=== PATIENT | male | born 1940 | race Caucasian/White ===

== ENCOUNTER → 2018-09-26 | Outpatient (CLI) | payer MEDICARE, MEDICAID ==
--- NOTE | 2018-09-26 11:11 | REP ---
KUB, ONE VIEW: HISTORY: Left upper quadrant pain. A small amount of air is present in small and large intestine. There are no air fluid levels or dilated loops of intestine. There is pneumoperitoneum. IMPRESSION: Nonspecific bowel gas pattern. Unreviewed
[2018-09-26 13:41] LABS: BASO # 0.1 10^3/uL (0.0-0.2); BASO % 0.8 % (0.0-1.0); EOS # 0.2 10^3/uL (0.0-0.50); EOS % 2.7 % (0.0-3.0); HEMATOCRIT 42.7 % (42.0-52.0); HEMOGLOBIN 14.4 g/dl (13.5-17.5); LYMPH # 2.4 10^3/uL (1.5-4.5); LYMPH % 26.6 % (24.0-44.0); MEAN CORPUSCULAR HEMOGLOBIN 30.4 pg (27.0-33.0); MEAN CORPUSCULAR HGB CONC 33.7 g/dl (32.0-36.5); MEAN CORPUSCULAR VOLUME 90.1 fl (80.0-96.0); MONO # 0.9 10^3/uL (0.0-0.8); MONO % 10.2 % (0.0-5.0); NEUTROPHILS # 5.2 10^3/uL (1.8-7.7); NEUTROPHILS % 59.1 % (36.0-66.0); PLATELET COUNT, AUTOMATED 332 10^3/uL (150-450); RED BLOOD COUNT 4.74 10^6/uL (4.30-6.10); WHITE BLOOD COUNT 8.8 10^3/uL (4.0-10.0)
[2018-09-26 14:10] LABS: ALBUMIN 3.7 GM/DL (3.2-5.2); ALT/SGPT 22 U/L (12-78); AMYLASE 58 U/L (25-115); BILIRUBIN,TOTAL 0.3 MG/DL (0.2-1.0); BLOOD UREA NITROGEN 17 MG/DL (7-18); CALCIUM LEVEL 8.7 MG/DL (8.8-10.2); CARBON DIOXIDE LEVEL 27 MEQ/L (21-32); CHLORIDE LEVEL 104 MEQ/L (98-107); GLOMERULAR FILTRATION RATE > 60.0 (>42); GLUCOSE, FASTING 78 MG/DL (70-100); LIPASE 125 U/L (73-393); POTASSIUM SERUM 4.5 MEQ/L (3.5-5.1); SODIUM LEVEL 139 MEQ/L (136-145); TOTAL PROTEIN 7.4 GM/DL (6.4-8.2)
[2018-09-26 15:42] LABS: PLATELET ESTIMATE NORMAL (NORMAL)
== END ==
LOC: M WUC 10:19
PROVIDERS: ATTEND Physician Assistant
DX: R10.12 Left upper quadrant pain (principal); Z79.899 Other long term (current) drug therapy

== ENCOUNTER → 2020-03-08 | Outpatient (CLI) | payer MEDICARE, MEDICAID ==
--- NOTE | 2020-03-08 10:23 | REP ---
Clinical: Pain. Technique: AP, lateral, bilateral oblique views of the left ankle. Findings: Generalized soft tissue swelling is appreciated along with chronic vascular calcifications consistent with peripheral vascular disease. Osseous structures demonstrate age-related changes. No acute fracture or dislocation. Ankle mortise appears intact. Impression: Soft-tissue swelling. Chronic changes. No acute fracture. Electronically Signed by Abrahan Park MD 03/08/2020 10:14 A
--- NOTE | 2020-03-08 10:24 | REP ---
Clinical: Pain. Technique: AP, lateral, bilateral oblique views of the left foot. Findings: Generalized age-related degenerative changes and evidence for peripheral vascular disease noted. Soft tissue swelling suggested. No acute fracture dislocation. No subcutaneous emphysema or foreign body. Impression: Soft-tissue swelling along with age-related degenerative changes and peripheral vascular disease. Electronically Signed by Abrahan Park MD 03/08/2020 10:15 A
[2020-03-08 12:39] LABS: BASO # 0.1 10^3/uL (0.0-0.2); BASO % 0.9 % (0.0-1.0); EOS # 0.3 10^3/uL (0.0-0.5); EOS % 2.9 % (0.0-3.0); HEMATOCRIT 42.7 % (42.0-52.0); HEMOGLOBIN 13.9 g/dl (13.5-17.5); LYMPH # 2.4 10^3/uL (1.5-5.0); LYMPH % 26.7 % (24.0-44.0); MEAN CORPUSCULAR HEMOGLOBIN 30.3 pg (27.0-33.0); MEAN CORPUSCULAR HGB CONC 32.6 g/dl (32.0-36.5); MEAN CORPUSCULAR VOLUME 93.2 fl (80.0-96.0); MONO # 1.2 10^3/uL (0.0-0.8); MONO % 13.2 % (0.0-5.0); NEUTROPHILS % 55.9 % (36.0-66.0); PLATELET COUNT, AUTOMATED 376 10^3/uL (150-450); RED BLOOD COUNT 4.58 10^6/uL (4.30-6.10)
[2020-03-08 13:33] LABS: ERYTHROCYTE SEDIMENTATION RATE 48 mm/hr (0-20)
== END ==
LOC: M WUC 09:56
PROVIDERS: ATTEND Physician Assistant
DX: M25.572 Pain in left ankle and joints of left foot (principal); M79.89 Other specified soft tissue disorders; M19.072 Primary osteoarthritis, left ankle and foot

== ENCOUNTER → 2020-03-14 | Outpatient (REF) | payer MEDICARE, MEDICAID ==
[2020-03-16 15:22] LABS: Lyme Disease IgG/IgM Antibodie <0.91 ISR (0.00-0.90); Lyme Disease IgM Ab Quantitati <0.80 index (0.00-0.79)
== END ==
LOC: M LABDRWAD 16:42
PROVIDERS: ATTEND Physician Assistant
DX: M25.572 Pain in left ankle and joints of left foot (principal); M25.571 Pain in right ankle and joints of right foot

== ENCOUNTER → 2020-06-30 | Outpatient (REF) | payer MEDICARE, MEDICAID | LOC: M LAB REF 16:20 | PROVIDERS: ATTEND Physician Assistant Medical | DX: M25.571 Pain in right ankle and joints of right foot (principal) ==

== ENCOUNTER → 2020-11-30 | Outpatient (REF) | payer MEDICARE, MEDICAID ==
[2020-11-30 12:45] LABS: BACTERIA, URINE AUTO NEGATIVE (NEGATIVE); MUCUS, URINE SMALL (NEGATIVE); RBC, URINE AUTO 1 /HPF (0-3); SQUAMOUS EPITHELIAL CELL UR AU 0 /HPF (0-6); WBC, URINE AUTO 0 /HPF (0-3)
[2020-11-30 12:51] LABS: BASO # 0.1 10^3/uL (0.0-0.2); BASO % 0.9 % (0.0-1.0); EOS # 0.2 10^3/uL (0.0-0.5); EOS % 1.9 % (0.0-3.0); HEMOGLOBIN 14.7 g/dl (13.5-17.5); LYMPH % 22.2 % (24.0-44.0); MEAN CORPUSCULAR HEMOGLOBIN 29.9 pg (27.0-33.0); MEAN CORPUSCULAR HGB CONC 32.7 g/dl (32.0-36.5); MEAN CORPUSCULAR VOLUME 91.5 fl (80.0-96.0); MONO % 10.9 % (2.0-8.0); NEUTROPHILS # 5.6 10^3/uL (1.5-8.5); NEUTROPHILS % 63.8 % (36.0-66.0); PLATELET COUNT, AUTOMATED 383 10^3/uL (150-450); RED BLOOD COUNT 4.92 10^6/uL (4.30-6.10); WHITE BLOOD COUNT 8.8 10^3/uL (4.0-10.0)
[2020-11-30 13:23] LABS: ERYTHROCYTE SEDIMENTATION RATE 42 mm/hr (0-20)
[2020-11-30 13:24] LABS: ALT/SGPT 18 U/L (12-78); AMYLASE 51 U/L (25-115); BILIRUBIN,TOTAL 0.3 MG/DL (0.2-1.0); BLOOD UREA NITROGEN 16 MG/DL (7-18); C REACTIVE PROTEIN QUANTITATIV 2.14 MG/DL (0.00-0.30); CALCIUM LEVEL 9.2 MG/DL (8.8-10.2); CARBON DIOXIDE LEVEL 30 MEQ/L (21-32); CHLORIDE LEVEL 104 MEQ/L (98-107); FREE T4 1.03 NG/DL (0.76-1.46); GLOMERULAR FILTRATION RATE > 60.0 (>42); GLUCOSE, FASTING 94 MG/DL (70-100); LIPASE 119 U/L (73-393); POTASSIUM SERUM 4.8 MEQ/L (3.5-5.1); SODIUM LEVEL 138 MEQ/L (136-145); TOTAL PROTEIN 8.1 GM/DL (6.4-8.2)
[2020-12-01 14:09] LABS: ANTINUCLEAR ANTIBODIES DIRECT Negative (Negative); Lyme Disease IgG/IgM Antibodie <0.91 ISR (0.00-0.90); Lyme Disease IgM Ab Quantitati <0.80 index (0.00-0.79)
== END ==
LOC: M LABDRWAD 12:27
PROVIDERS: ATTEND Nurse Practitioner Family
DX: R10.84 Generalized abdominal pain (principal); M25.50 Pain in unspecified joint; E07.9 Disorder of thyroid, unspecified

== ENCOUNTER 2021-02-10 11:13 | Emergency (ER) | payer MEDICARE, MEDICAID ==
[~2021-02-10] VITALS: Ht 154.9 cm; Wt 79.7 kg
--- NOTE | 2021-02-10 12:07 | REP ---
INDICATION: pain after a fall COMPARISON: None. TECHNIQUE: Three views right shoulder. FINDINGS: There is no evidence of acute fracture, dislocation, or intrinsic bone disease.Moderate narrowing and hypertrophic changes at the acromioclavicular joint. IMPRESSION: No fracture or dislocation. <Electronically signed by Denis Petit > 02/10/21 [id number]
[2021-02-10] MEDS ORDERED: ACETAMINOPHEN 325 MG TAB PO ONE (12:55)
--- NOTE | 2021-02-10 13:10 | REP ---
INDICATION: injury/swelling COMPARISON: 11/04/2019. TECHNIQUE: Four views right wrist. FINDINGS: There is no evidence of acute fracture, dislocation, or intrinsic bone disease.There is mild joint space narrowing of the radiocarpal joint and joint between trapezium and base of 1st metacarpal. There is scattered vascular calcifications in the soft tissues. IMPRESSION: No fracture or dislocation. <Electronically signed by Denis Petit > 02/10/21 [id number]
[2021-02-10] MEDS ORDERED: LIDO5DIS41 TOP (14:13)
[2021-02-10 14:37] VITALS: BP 149/76
== END 2021-02-10 14:37 | disposition home or self-care (01) ==
LOC: M ED 11:13
DX: S63.90XA Sprain of unspecified part of unspecified wrist and hand, initial encounter (principal); M25.511 Pain in right shoulder; Y92.9 Unspecified place or not applicable; Y93.89 Activity, other specified; Y99.9 Unspecified external cause status

== ENCOUNTER → 2021-02-19 | Outpatient (CLI) | payer MEDICARE, MEDICAID ==
[~2021-02-19] MED LIST: LIDO5DIS41 TOP
--- NOTE | 2021-02-19 10:35 | REP ---
INDICATION: UNDIFFERENTIATED INFLAMMATORY ARTHRITIS/LABS 1ST. COMPARISON: Comparison is made with right wrist radiographs from February 10, 2021 and November 04, 2019.. TECHNIQUE: Eight views. Four of each hand. FINDINGS: Four views of each hand demonstrate diffuse osteopenia. Vascular calcifications noted in the distal radial and distal ulnar arteries extending to the level of the wrist bilaterally. Joint spaces are preserved. No acute erosive changes are seen. There are minimal osteoarthritic spurs formed at the DIP joints of the left index, long, ring and small fingers and the IP joint of the left thumb. On the right there is mild osteoarthritic change with spurring at the index finger DIP and PIP and at the long finger PIP and DIP. There is mild spurring at the ring and small finger DIP joints as well on the right. Minimal spurring is seen at the IP joint of the thumb on the right. No bony destructive lesion is seen.. 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 Diffuse osteopenia and vascular calcification. No bony erosive changes seen.. <Electronically signed by Danyel Hu > 02/19/21 [id number]
[2021-02-19 10:40] LABS: BASO # 0.1 10^3/uL (0.0-0.2); BASO % 0.9 % (0.0-1.0); EOS # 0.2 10^3/uL (0.0-0.5); EOS % 2.4 % (0.0-3.0); HEMATOCRIT 43.2 % (42.0-52.0); HEMOGLOBIN 13.9 g/dl (13.5-17.5); LYMPH # 1.8 10^3/uL (1.5-5.0); LYMPH % 20.5 % (24.0-44.0); MEAN CORPUSCULAR HEMOGLOBIN 29.4 pg (27.0-33.0); MEAN CORPUSCULAR HGB CONC 32.2 g/dl (32.0-36.5); MEAN CORPUSCULAR VOLUME 91.5 fl (80.0-96.0); MONO # 0.8 10^3/uL (0.0-0.8); MONO % 9.2 % (2.0-8.0); NEUTROPHILS # 5.8 10^3/uL (1.5-8.5); NEUTROPHILS % 66.8 % (36.0-66.0); PLATELET COUNT, AUTOMATED 315 10^3/uL (150-450); RED BLOOD COUNT 4.72 10^6/uL (4.30-6.10); WHITE BLOOD COUNT 8.6 10^3/uL (4.0-10.0)
[2021-02-19 10:45] LABS: APPEARANCE, URINE CLEAR (CLEAR); BACTERIA, URINE AUTO NEGATIVE (NEGATIVE); BILIRUBIN, URINE AUTO NEGATIVE (NEGATIVE); BLOOD, URINE BLOOD 1+ (NEGATIVE); COLOR, URINE STRAW (YELLOW); GLUCOSE, URINE (UA) AUTO NEGATIVE (NEGATIVE); KETONE, URINE AUTO NEGATIVE (NEGATIVE); LEUKOCYTE ESTERASE, URINE AUTO NEGATIVE (NEGATIVE); MUCUS, URINE SMALL (NEGATIVE); NITRITE, URINE AUTO NEGATIVE (NEGATIVE); PROTEIN, URINE AUTO NEGATIVE (NEGATIVE); RBC, URINE AUTO 1 /HPF (0-3); SQUAMOUS EPITHELIAL CELL UR AU 0 /HPF (0-6); UROBILINOGEN, URINE AUTO 0.2 mg/dL (0.0-2.0); WBC, URINE AUTO 0 /HPF (0-3)
[2021-02-19 11:04] LABS: ALT/SGPT 19 U/L (12-78); BILIRUBIN,DIRECT < 0.1 MG/DL (0.0-0.2); BILIRUBIN,TOTAL 0.4 MG/DL (0.2-1.0); BLOOD UREA NITROGEN 16 MG/DL (7-18); C REACTIVE PROTEIN QUANTITATIV 2.43 MG/DL (0.00-0.30); CALCIUM LEVEL 9.2 MG/DL (8.8-10.2); CARBON DIOXIDE LEVEL 28 MEQ/L (21-32); CHLORIDE LEVEL 104 MEQ/L (98-107); COMPLEMENT C3 126 MG/DL (90-180); COMPLEMENT C4 37 MG/DL (10-40); CPK CREATINE PHOSPHOKINASE 91 U/L (39-308); CREATININE FOR GFR 0.67 MG/DL (0.70-1.30); GLOMERULAR FILTRATION RATE > 60.0 (>35); GLUCOSE, FASTING 82 MG/DL (70-100); IRON (FE) 61 UG/DL (65-175); MAGNESIUM LEVEL 2.2 MG/DL (1.8-2.4); PHOSPHORUS LEVEL 3.2 MG/DL (2.5-4.9); POTASSIUM SERUM 4.7 MEQ/L (3.5-5.1); RHEUMATOID FACTOR QUANT < 10.0 IU/ML (<15.0); SODIUM LEVEL 139 MEQ/L (136-145); TOTAL PROTEIN 8.1 GM/DL (6.4-8.2)
--- NOTE | 2021-02-19 11:13 | REP ---
INDICATION: OTH SPECIFIC JOINT DERANGEMENTS OF RIGHT SHOULDER, NEC. COMPARISON: Comparison radiographs of the right shoulder from February 10, 2021.. TECHNIQUE: Axial, oblique coronal, and oblique sagittal imaging planes utilized. T1 and T2 weighted scans are obtained in the usual fashion with without fat saturation. FINDINGS: There is some osteoarthritic hypertrophy, marrow edema, and joint fluid at the acromioclavicular joint. There is also a moderate glenohumeral joint effusion. There is a complete retracted tear of the supraspinatus tendon with obliteration of the subacromial space and associated mild superior subluxation of the humeral head relative to the glenoid. Cortical and medullary bone signal intensity are normal in the glenoid and humeral head. The biceps, infraspinatus, and subscapularis tendons appear to be intact. No anterior or posterior labral cartilage disruption is seen. The superior labral cartilage appears to be intact as well. There is not appear to be prominent muscle atrophy in the supraspinatus or other shoulder girdle musculature. 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 Glenohumeral joint effusion. Complete retracted tear of the supraspinatus tendon with obliteration of the subacromial space. <Electronically signed by Danyel Hu > 02/19/21 0639
[2021-02-19 11:24] LABS: ERYTHROCYTE SEDIMENTATION RATE 56 mm/hr (0-20)
[2021-02-19 11:32] LABS: CREATININE,RANDOM URINE 51.3 MG/DL; TOTAL PROTEIN,RANDOM URINE 5.2 MG/DL (0.0-12.0)
[2021-02-20 11:06] LABS: TOTAL 25(OH) VITAMIN D 35.9 NG/ML (30.0-100.0); VITAMIN B12 LEVEL 411 PG/ML (247-911)
[2021-02-23 12:21] LABS: DRVV SCREEN 44.5 SEC
[2021-02-23 12:28] LABS: PTT LUPUS TYPE ANTICOAG SCREEN 1.2 (0-1.2)
[2021-02-23 12:34] LABS: DRVV CONFIRM 36.5 SEC
[2021-02-23 12:35] LABS: NORMALIZED RATIO 1.2 (0.00-1.20)
[2021-02-25 16:07] LABS: HEXAGONAL PHASE PHOSPHOLIPID 0 sec (0-11)
[2021-02-27 21:07] LABS: ANA (HEP2) Negative (.); ANTI CENTROMERE ANTIBODY <0.2 AI (0.0-0.9); ANTI DS-DNA AB Negative (Negative); ANTI SCLERODERMA ANTIBODIES <0.2 AI (0.0-0.9); ANTI SMITH(Sm) AB <20 Units (<20); ANTI-HISTONE ANTIBODIES 1.6 Units (0.0-0.9); ANTI-U1 RNP AB <20 Units (<20); BETA-2 GLYCOPROTEIN I ABY IGA 19 (0-25); BETA-2 GLYCOPROTEIN I ABY IGG <9 (0-20); BETA-2 GLYCOPROTEIN I ABY IGM <9 (0-32); CARDIOLIPIN IGA ANTIBODY <9 APL U/mL (0-11); CARDIOLIPIN IGG ANTIBODY 14 GPL U/mL (0-14); CARDIOLIPIN IGM ANTIBODY <9 MPL U/mL (0-12); COMPLEMENT TOTAL (CH50) > 60 U/mL (>41); CYCLIC CITRULLINATED PEPTIDE 7 units (0-19); SSA SJOGRENS A <0.2 AI (0.0-0.9); SSB SJOGRENS B <0.2 AI (0.0-0.9)
== END ==
LOC: M LAB 08:11 → M RAD 08:11
PROVIDERS: ATTEND Internal Medicine
DX: M79.10 Myalgia, unspecified site (principal); M06.4 Inflammatory polyarthropathy; M24.811 Other specific joint derangements of right shoulder, not elsewhere classified

== ENCOUNTER → 2021-03-01 | Outpatient (CLI) | payer MEDICARE, MEDICAID ==
--- NOTE | 2021-03-01 13:08 | REP ---
INDICATION: HTN-EKG 1ST. COMPARISON: 06/11/2016 the latest prior TECHNIQUE: PA and lateral FINDINGS: The superior mediastinal structures are midline. The cardiac silhouette is unremarkable in size, shape, and position. The diaphragmatic surfaces of the lungs are regular, and the costophrenic angles are clear. The pulmonary hart are clear. The imaged osseous structures are intact. IMPRESSION: There is no acute cardiopulmonary disease. <Electronically signed by Donte Smith > 03/01/21 [id number]
--- NOTE | 2021-03-01 21:33 | ECGEPIP ---
[facility] Test Date: 2021-03-01 Pat Name: BEREKET NAYLOR Department: Room: - Gender: Male [employer]: lena : 1940 Requested By: Debbie Mitchell Order Number: [id number] Reading MD: Waldemar Vázquez Measurements Intervals [place] Rate: 60 P: 8 VA: 148 QRS: -33 QRSD: 94 T: 27 QT: 418 QTc: 418 Interpretive Statements Normal sinus rhythm Left axis deviation No prior ECG available for comparison at the time of interpretation. Electronically Signed on 03-01-2021 21:33:07 EDT by Waldemar Vázquez
== END ==
LOC: M RAD 11:23
PROVIDERS: ATTEND Family Medicine
DX: I10 Essential (primary) hypertension (principal)

== ENCOUNTER → 2021-03-03 | Outpatient (CLI) | payer MEDICARE, MEDICAID ==
--- NOTE | 2021-03-03 13:57 | REP ---
INDICATION: LT ANKLE PAIN SWELLING. COMPARISON: Radiographs 03/08/2020. TECHNIQUE: Multiple sequences are obtained in the axial, coronal and sagittal planes. FINDINGS: The Achilles, anterior tibial, posterior tibial, flexor hallucis longus, flexor digitorum longus and peroneal tendons are all intact without significant tenosynovitis. The anterior and posterior talofibular, calcaneofibular and deltoid ligaments appear intact. Plantar tendon appears intact. There is no plantar fasciitis. Sinus tarsi appears unremarkable. At the level of the tibiotalar joint there is mild focal fluid along the dorsal surface of the extensor digitorum tendons, measuring 18 x 4 mm, this may represent a small ganglion cyst. There is mild to moderate scattered joint fluid at the margins of the tibiotalar joint and talocalcaneal joint. There is mild to moderate diffuse chondromalacia at the tibiotalar joint. No osteochondral defect is seen at the tibiotalar joint. There is mild edema in the anterior calcaneus. IMPRESSION: No evidence of tendon or ligament tear. Focal fluid along the dorsal surface of the extensor digitorum tendons at the level of the tibiotalar joint measures 18 x 4 mm and may represent a small ganglion cyst. 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 Mild edema in the anterior calcaneus. Mild to moderate scattered fluid is seen along the margins of the tibiotalar joint and in the talocalcaneal joint. <Electronically signed by Denis Petit > 03/03/21 [id number]
== END ==
LOC: M PLARAD 10:46
PROVIDERS: ATTEND Internal Medicine
DX: M94.272 Chondromalacia, left ankle and joints of left foot (principal); M24.811 Other specific joint derangements of right shoulder, not elsewhere classified

== ENCOUNTER → 2021-03-30 | Outpatient (REF) | payer MEDICARE, MEDICAID ==
[2021-03-30 17:05] LABS: APPEARANCE, URINE CLEAR (CLEAR); BACTERIA, URINE AUTO NEGATIVE (NEGATIVE); BILIRUBIN, URINE AUTO NEGATIVE (NEGATIVE); BLOOD, URINE BLOOD NEGATIVE (NEGATIVE); COLOR, URINE STRAW (YELLOW); GLUCOSE, URINE (UA) AUTO NEGATIVE (NEGATIVE); KETONE, URINE AUTO TRACE mg/dL (NEGATIVE); LEUKOCYTE ESTERASE, URINE AUTO NEGATIVE (NEGATIVE); MUCUS, URINE SMALL (NEGATIVE); NITRITE, URINE AUTO NEGATIVE (NEGATIVE); PROTEIN, URINE AUTO NEGATIVE (NEGATIVE); RBC, URINE AUTO 0 /HPF (0-3); SPECIFIC GRAVITY URINE AUTO 1.009 (1.002-1.035); SQUAMOUS EPITHELIAL CELL UR AU 0 /HPF (0-6); UROBILINOGEN, URINE AUTO 0.2 mg/dL (0.0-2.0); WBC, URINE AUTO 0 /HPF (0-3)
== END ==
LOC: M SFHCRHEU 12:50
PROVIDERS: ATTEND Internal Medicine
DX: R31.9 Hematuria, unspecified (principal)
CPT/HCPCS: 81001; G0463

== ENCOUNTER → 2021-05-05 | Outpatient (CLI) | payer MEDICARE, MEDICAID ==
--- NOTE | 2021-05-05 17:14 | REP ---
INDICATION: RT BRUIT COMPARISON: None. TECHNIQUE: Petit scale and color Doppler evaluation using linear high frequency transducer Findings: FINDINGS: Two-dimensional petit scale and color images demonstrate normal arterial lumen with laminar flow and no appreciable narrowing. Color Doppler interrogation demonstrates normal arterial wave patterns and velocities with no significant spectral broadening. Normal flow direction is appreciated in the bilateral vertebral arteries. ICA peak systolic velocity: Right 95.4 cm/s; Left 150.4 cm/s ICA diastolic velocity: Right 25.5 cm/s; Left 42.2 cm/s ECA peak systolic velocity: Right 97.8 cm/s; Left 75.8 cm/s CCA peak systolic velocity: Right 115.7 cm/s; Left 90.2 cm/s ICA/CCA ratio: Right 0.82 cm/s; Left 1.76 cm/s IMPRESSION: No visible areas of stenosis or turbulent flow appreciated. However, elevated left peak systolic velocity and ICA/CCA ratio suggests the possibility of focal occult narrowing in the 50-69% range. Clinical correlation is recommended and if necessary consider MRA of the carotid arteries for further investigation. <Electronically signed by Abrahan Park > 05/05/21 [id number]
== END ==
LOC: M RAD 16:38
PROVIDERS: ATTEND Family Medicine
DX: R09.89 Other specified symptoms and signs involving the circulatory and respiratory systems (principal)

== ENCOUNTER → 2022-10-15 | Outpatient (CLI) | payer MEDICARE, MEDICAID ==
[2022-10-15 10:53] LABS: HEMATOCRIT 45.1 % (42.0-52.0); MEAN CORPUSCULAR HEMOGLOBIN 31.1 pg (27.0-33.0); MEAN CORPUSCULAR HGB CONC 33.3 g/dl (32.0-36.5); MEAN CORPUSCULAR VOLUME 93.4 fl (80.0-96.0); PLATELET COUNT, AUTOMATED 298 10^3/uL (150-450); RED BLOOD COUNT 4.83 10^6/uL (4.30-6.10); WHITE BLOOD COUNT 7.5 10^3/uL (4.0-10.0)
[2022-10-15 11:19] LABS: HEMOGLOBIN A1c 5.3 % (4.0-6.0)
[2022-10-15 11:21] LABS: ALKALINE PHOSPHATASE 67 U/L (46-116); ALT/SGPT 21 U/L (7.0-40); AST/SGOT 24 U/L (<34); BILIRUBIN,TOTAL 0.7 MG/DL (0.3-1.2); BLOOD UREA NITROGEN 23 MG/DL (9-23); CALCIUM LEVEL 9.3 MG/DL (8.3-10.6); CARBON DIOXIDE LEVEL 27 MMOL/L (20-31); CHLORIDE LEVEL 105 MMOL/L (98-107); CHOLESTEROL LEVEL 197 MG/DL (<200); CHOLESTEROL RISK RATIO 2.97 (<5); CREATININE FOR GFR 0.74 MG/DL (0.70-1.30); GLOMERULAR FILTRATION RATE > 60.0 (>35); GLUCOSE, FASTING 96 MG/DL (74-106); HDL CHOLESTEROL 66.3 MG/DL (>40); LDL CHOLESTEROL 116.1 MG/DL (<100); NON-HDL-C 131 MG/DL; POTASSIUM SERUM 4.5 MMOL/L (3.5-5.1); PROSTATIC SPECIFIC AG MONITOR 1.16 NG/ML (< 4.00); SODIUM LEVEL 139 MMOL/L (136-145); TOTAL PROTEIN 7.3 G/DL (5.7-8.2); TRIGLYCERIDES LEVEL 73 MG/DL (<150)
[2022-10-15 11:22] LABS: THYROID STIMULATING HORMONE 2.259 uIU/ML (0.55-4.78)
[2022-10-15 11:23] LABS: TESTOSTERONE 557 NG/DL (241-827)
== END ==
LOC: M LAB 09:49
PROVIDERS: ATTEND Family Medicine
DX: M19.011 Primary osteoarthritis, right shoulder (principal); M19.012 Primary osteoarthritis, left shoulder; I10 Essential (primary) hypertension; R53.83 Other fatigue; E03.9 Hypothyroidism, unspecified

== ENCOUNTER → 2024-04-23 | Outpatient (CLI) | payer MEDICARE, MEDICAID ==
[2024-04-23 09:24] LABS: HEMATOCRIT 42.2 % (42.0-52.0); HEMOGLOBIN 13.9 g/dl (13.5-17.5); MEAN CORPUSCULAR HEMOGLOBIN 30.8 pg (27.0-33.0); MEAN CORPUSCULAR HGB CONC 32.9 g/dl (32.0-36.5); MEAN CORPUSCULAR VOLUME 93.4 fl (80.0-96.0); PLATELET COUNT, AUTOMATED 329 10^3/uL (150-450); RED BLOOD COUNT 4.52 10^6/uL (4.30-6.10)
[2024-04-23 09:34] LABS: HEMOGLOBIN A1c 5.5 % (4.0-6.0)
[2024-04-23 10:00] LABS: ALBUMIN 3.4 G/DL (3.2-5.2); ALKALINE PHOSPHATASE 76 U/L (46-116); ALT/SGPT 10 U/L (7.0-40); AST/SGOT 13 U/L (<34); BILIRUBIN,TOTAL 0.3 MG/DL (0.3-1.2); BLOOD UREA NITROGEN 18 MG/DL (9-23); CALCIUM LEVEL 8.9 MG/DL (8.3-10.6); CARBON DIOXIDE LEVEL 28 MMOL/L (20-31); CHLORIDE LEVEL 105 MMOL/L (98-107); CHOLESTEROL LEVEL 173 MG/DL (<200); CHOLESTEROL RISK RATIO 3.86 (<5); CREATININE FOR GFR 0.69 MG/DL (0.70-1.30); GLOMERULAR FILTRATION RATE > 60.0 (>35); GLUCOSE, FASTING 94 MG/DL (74-106); HDL CHOLESTEROL 44.8 MG/DL (>40); LDL CHOLESTEROL 107.2 MG/DL (<100); NON-HDL-C 128.2 MG/DL; POTASSIUM SERUM 4.3 MMOL/L (3.5-5.1); SODIUM LEVEL 138 MMOL/L (136-145); TOTAL PROTEIN 7.1 G/DL (5.7-8.2); TRIGLYCERIDES LEVEL 105 MG/DL (<150)
[2024-04-23 10:15] LABS: THYROID STIMULATING HORMONE 1.984 uIU/ML (0.55-4.78)
[2024-04-23 10:16] LABS: TESTOSTERONE 429 NG/DL (241-827)
== END ==
LOC: M LAB 08:17
PROVIDERS: ATTEND Family Medicine
DX: R53.83 Other fatigue (principal); I10 Essential (primary) hypertension; E03.9 Hypothyroidism, unspecified; Z79.899 Other long term (current) drug therapy

== ENCOUNTER → 2025-04-09 | Outpatient (CLI) | payer MEDICARE, MEDICAID ==
[~2025-04-09] MED LIST changes: +LIDO1ADH93 TOP; -LIDO5DIS41 TOP
== END ==
LOC: M PLAIMG 10:54
PROVIDERS: ATTEND Student in an Organized Health Care Education/Training Program
DX: M25.511 Pain in right shoulder (principal); M25.512 Pain in left shoulder; M25.562 Pain in left knee

== ENCOUNTER → 2025-07-29 | Outpatient (CLI) | payer MEDICARE, MEDICAID ==
[2025-07-29 14:17] LABS: BASO # 0.1 10^3/uL (0.0-0.2); BASO % 0.8 % (0.0-1.0); EOS # 0.3 10^3/uL (0.0-0.5); EOS % 2.6 % (0.0-3.0); LYMPH # 2.1 10^3/uL (1.5-5.0); LYMPH % 21.3 % (24.0-44.0); MONO # 1.2 10^3/uL (0.0-0.8); MONO % 12.2 % (2.0-8.0); NEUTROPHILS # 6.0 10^3/uL (1.5-8.5); NEUTROPHILS % 62.5 % (36.0-66.0); PLATELET COUNT, AUTOMATED 437 10^3/uL (150-450)
[2025-07-29 14:35] LABS: ESTIMATED AVERAGE GLUCOSE 126.0 MG/DL (60-110)
[2025-07-29 14:46] LABS: ALT/SGPT 14.0 U/L (7.0-40); AST/SGOT 18.0 U/L (<34); CALCIUM LEVEL 9.0 MG/DL (8.3-10.6); CARBON DIOXIDE LEVEL 29.0 MMOL/L (20-31); CHLORIDE LEVEL 103.0 MMOL/L (98-107); CHOLESTEROL LEVEL 171.0 MG/DL (<200); CHOLESTEROL RISK RATIO 3.51 (<5); CREATININE FOR GFR 0.75 MG/DL (0.70-1.30); GLOMERULAR FILTRATION RATE 89.0 (>35); LDL CHOLESTEROL 101.5 MG/DL (<100); NON-HDL-C 122.3 MG/DL; POTASSIUM SERUM 5.0 MMOL/L (3.5-5.1); SODIUM LEVEL 138.0 MMOL/L (136-145); TRIGLYCERIDES LEVEL 104.0 MG/DL (<150)
== END ==
LOC: M PLALAB 09:25
PROVIDERS: ATTEND Student in an Organized Health Care Education/Training Program
DX: Z00.00 Encounter for general adult medical examination without abnormal findings (principal); M06.00 Rheumatoid arthritis without rheumatoid factor, unspecified site; R60.0 Localized edema; I10 Essential (primary) hypertension; Z79.899 Other long term (current) drug therapy; R06.02 Shortness of breath